=== PATIENT | male | born 1960 | race American Indian/Alaskan Native ===

== ENCOUNTER 2020-01-07 09:38 | Outpatient (CLI) | payer OTHER ==
--- NOTE | 2020-01-07 11:07 | Magnetic Resonance Report ---
MRI LEFT KNEE WITHOUT CONTRAST INDICATION: MAIN: LEFT KNEE PAIN. hemangioma lt leg. COMPARISON: None available. TECHNIQUE: Multiplanar, multisequence MR images were obtained. FINDINGS: ACL: Normal. PCL: Normal. DISTAL QUADRICEPS TENDON: Normal. PATELLAR TENDON: Normal. MEDIAL MENISCUS: There is a horizontal undersurface tear of the posterior horn of the medial meniscus . LATERAL MENISCUS: Normal. POSTEROLATERAL CORNER: Normal. MCL: Normal. LCL: Normal. DISTAL BICEPS FEMORIS TENDON: Normal. POPLITEUS TENDON: Normal. DISTAL IT BAND: Normal. ARTICULAR CARTILAGE: Mild chondrosis of the medial femorotibial compartment with secondary marginal o steophyte formation. JOINT SPACE: No significant joint effusion or synovitis. Tiny popliteal cyst. INTRA-ARTICULAR BODIES: None. BONES: No bone marrow edema. No fracture. No osseous lesion. SOFT TISSUES: There is a large cluster of veins in the lateral leg subcutaneous soft tissues with a l arge vein connecting this cluster of veins to the popliteal vein. ADDITIONAL FINDINGS: None. IMPRESSION: 1. Horizontal tear of the posterior horn of the medial meniscus. 2. 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 3. Tiny popliteal cyst. 4. Large cluster of veins in the lateral leg with a large vein connecting this cluster of veins to th e popliteal vein. These could possibly represent collaterals due to a chronic venous thrombosis or de velopmental vascular malformation. Signer Name: Diego Blake MD Signed: 01/07/2020 11:03 AM Workstation Name: [id number]
== END 2020-01-07 09:39 | disposition home or self-care (01) ==
LOC: MRI 09:38
DX: S83.242A Other tear of medial meniscus, current injury, left knee, initial encounter (principal); M17.12 Unilateral primary osteoarthritis, left knee; M71.22 Synovial cyst of popliteal space [Baker], left knee; Y93.89 Activity, other specified; X58.XXXA Exposure to other specified factors, initial encounter; Y92.89 Other specified places as the place of occurrence of the external cause; Y99.8 Other external cause status
CPT/HCPCS: 73721